=== PATIENT | male | born 2000 | race Caucasian/White ===

== ENCOUNTER 2022-10-23 19:23 | Emergency (ER) | payer OTHER, SELFPAY ==
[2022-10-23 19:24] VITALS: BP 151/92; PULSE 102; RESP 18; TEMP 36.6; O2SAT 98; BMI 21.5
--- NOTE | 2022-10-23 19:29 | EKG12_ITS ---
Test Reason : CP Blood Pressure : / mmHG Vent. Rate : 100 BPM Atrial Rate : 100 BPM P-R Int : 144 ms QRS Dur : 082 ms QT Int : 320 ms P-R-T Axes : 076 076 013 degrees QTc Int : 412 ms Normal sinus rhythm Nonspecific T wave abnormality Abnormal ECG Confirmed by TORRI GOODMAN, SUSU ([id number]), rewrite editor RUTH REA ([id number]) on 10/24/2022 1:11:31 PM Referred By: KELLEN Confirmed By:KETURAH WILD MD
--- NOTE | 2022-10-23 19:33 | RAD_ITS ---
EXAM: XR CHEST, 1 VIEW CLINICAL INDICATION: None provided. chest pain chest pain with shortness of breath all day TECHNIQUE: Frontal view of the chest. COMPARISON: No relevant prior studies available. FINDINGS: LUNGS AND PLEURAL SPACES: Unremarkable. No consolidation or edema. No pneumothorax. No effusion. HEART: Unremarkable. Cardiac silhouette not enlarged. MEDIASTINUM: Central airways and mediastinal contour are unremarkable. BONES/JOINTS: Unremarkable. SOFT TISSUES: Unremarkable. RAD/Chest 1 View (Portable) IMPRESSION: No radiographic evidence of acute cardiopulmonary disease. Electronically Signed: Neptali Espinoza MD at 19:44 EDT ,
[2022-10-23 20:23] LABS: Absolute Neutrophil Count 5.3 X10^3/uL (2.0-7.7); Basophil# 0.04 X10^3/uL; Basophil% 0.5 % (0-1); Eosinophil# 0.05 X10^3/uL; Eosinophils% 0.6 % (0-5); Hematocrit 49.2 % (40-54); Hemoglobin 16.3 g/dL (13.0-16.5); Lymphocyte % 23.5 % (19-41); Mean Corp Hgb Conc 33.1 g/dL (32-36); Mean Corpuscular Hgb 27.7 pg (27.0-32.0); Mean Corpuscular Volume 83.7 fL (80-94); Mean Platelet Vol. 9.5 fl (6.2-12.0); Monocyte# 0.74 X10^3/uL; Monocyte% 9.2 % (0-10); NRBC Flagged by Analyzer 0 % (0-5); Neutrophil % 65.7 % (47-70); Platelet Count 309 K/mm3 (150-450); RBC Distribution Width CV 12.2 % (11.6-14.6); RBC Distribution Width SD 37.3 fl (35.1-43.9); Red Blood Count 5.88 M/mm3 (4.6-6.2); White Blood Count 8.1 K/mm3 (4.4-11.0)
[2022-10-23 20:42] LABS: Anion Gap 9 (5-15); BUN 9 mg/dL (7-18); BUN/Creat Ratio 9.6 RATIO (10-20); Calcium,Total 9.8 mg/dL (8.5-10.1); Chloride 101 mmol/L (98-107); Creatinine, Serum 0.93 mg/dL (0.70-1.30); EST Glomerular Filtration Rate 108 mL/min (>60); Est Glom Filt Rate - Afr Amer 131 mL/min (>60); Estimated Creatinine Clearance 121.03 ml/min; Glucose 126 mg/dL (74-106); Potassium 3.6 mmol/L (3.5-5.1); Sodium Level 138 mmol/L (136-145); Troponin-I HS (w/2H Reflex) 4 pg/mL (3.0-78.0)
--- NOTE | 2022-10-23 23:03 | EDS_ITS ---
HPI History of Present Illness Chief Complaint: Chest Pain Narrative Narrative: 22-year-old male with chest pain. He states he also has some shortness of breath. He has history of ADHD. He states that about 10 AM today he started experiencing chest pain and shortness of breath but felt a little bit like pressure. He states its been constant all day. He believes it started after he took his dexmethylphenidate but he takes this regularly. Patient currently feels like his symptoms have resolved. He has concerned that he might have some anxiety because of finals week. He is also concerned to be a medication side effect as he did take it on empty stomach. He has not had fever, chills. PE Risk Factors: Negative for Recent Travel/Surgery, Recent Immobilization, Prior DVT or PE, Cancer or OCP + Smoking + >/=35 PFSH PFSH Medical History no medical history Home Medications dexmethylphenidate 15 mg capsule,extended release [id number] 15 mg PO DAILY 10/23/22 [History Last Taken Unknown] isotretinoin 40 mg capsule (Accutane) 40 mg PO BID 10/23/22 [History Last Taken Unknown] Allergy/AdvReac Type Severity Reaction Status Date / Time Penicillins [PCN] Allergy Hives Verified 10/23/22 19:26 Surgical History no surgical history Social History Smoking Status: Never smoker EXAM Physical Exam Const Vital Signs: 10/23/22 19:24 10/23/22 21:59 Temperature 97.8 F Temperature Source Temporal Pulse Rate 102 H Respiratory Rate 18 Blood Pressure 151/92 H Blood Pressure Mean 111 Pulse Ox 98 Oxygen Delivery Method Room Air Room Air Positive well nourished General Appearance ED: NAD HEENT Reports moist mucous membranes normocephalic Eyes PERRL and EOMs intact bilaterally Chest Wall inspection of chest normal Resp normal respiratory effort and clear to auscultation bilaterally Auscultation: Negative for rales, rhonchi or wheezes Cardio regular rate, regular rhythm and no murmurs Extremity normal to inspection Neuro oriented x3 and CN's II-XII intact bilaterally Sensorium / Orientation: awake and alert Psych mental status grossly normal Skin no rashes or lesions noted Heart Score History: Slightly/Non-Suspicious ECG: Normal Age: </= 45 years Risk Factors: No Risk Factors Troponin: </= Normal Limit Score: 0 MDM MDM MDM Narrative Medical decision making narrative: 22-year-old male presenting with chest pain and shortness of breath. He is concerned it might be anxiety versus a medication side effect. No cardiac history. No pulmonary history. He states he is healthy other than taking dexmethylphenidate for ADHD. Pharyngeal includes costochondritis, anxiety, ACS, pneumonia. Did consider PE but the patient does not have any recent travel, history of DVT/PE, history of cancer, recently bedridden immobilized. No recent surgery. Patient slightly tachycardic but he is anxious. Is not hypoxic. CBC to assess white blood cell count, hemoglobin, platelets, differential. BMP to assess renal function, electrolytes, glucose. Troponin to assess for cardiac source. EKG and chest x-ray will also be obtained. EKG on my interpretation shows normal sinus rhythm with a ventricular rate of 100 bpm without sign of ischemic change. Chest x-ray my interpretation shows no acute cardiopulmonary process. The radiologist interprets this and agrees. CBC and BMP unremarkable. Troponin is 4. Patient feeling much better at this point. I do not believe he needs a repeat troponin as he has had pain since 10:00 this morning and his troponin is negative. I do not believe he represents a PE either. I do suspect he has some anxiety. We discussed this at length. He states that his primary care is not local but he can make a follow-up with him. Return precautions discussed. Impression: 1. Chest pain?Noncon Lab Data Labs: Laboratory Results - last 24 hr 10/23/22 10/23/22 20:15 20:15 WBC 8.1 RBC 5.88 Hgb 16.3 Hct 49.2 MCV 83.7 MCH 27.7 MCHC 33.1 RDW Std Deviation 37.3 RDW Coeff of Wilfredo 12.2 Plt Count 309 MPV 9.5 Immature Gran % (Auto) 0.500 Neut % (Auto) 65.7 Lymph % (Auto) 23.5 [place] % (Auto) 9.2 Eos % (Auto) 0.6 Baso % (Auto) 0.5 Absolute Neuts (auto) 5.3 Absolute Lymphs (auto) 1.90 Nucleated RBC % 0 Sodium 138 Potassium 3.6 Chloride 101 Carbon Dioxide 28.0 Anion Gap 9 BUN 9 Creatinine 0.93 Estim Creat Clear Calc 121.03 Est GFR (MDRD) Af Amer 131 Est GFR (MDRD) Non-Af 108 BUN/Creatinine Ratio 9.6 L Glucose 126 H Calcium 9.8 Troponin I High Sens 4 Radiography Diagnostic Testing: Clinical Impression(s) from Imaging Studies Chest X-Ray 10/23/22 19:33 IMPRESSION: No radiographic evidence of acute cardiopulmonary disease. Electronically Signed: Neptali Espinoza MD at 19:44 EDT Reading Location ID and State: [facility] / [place] , Service support , Discharge Plan Triage Chief Complaint: Chest Pain ED Provider: Ronal Zarate Dx/Rx/DC Orders Instructions: ED Chest Pain, Uncertain Cause Prescriptions: No Action isotretinoin [Accutane] 40 mg Capsule 40 mg PO BID Rx Instructions: must administer with a meal/food dexmethylphenidate 15 mg Capsule,Er Biphasic 50-50 15 mg PO DAILY Primary Care Provider: Care Physician,No Primary Referrals: Care Physician,No Primary [Primary Care Provider] - Disposition Disposition: Home, Self Care
[2022-10-23 23:22] VITALS: BP 129/60; PULSE 78; RESP 17; O2SAT 96
== END 2022-10-23 23:23 | disposition home or self-care (01) ==
PROVIDERS: Emergency Provider Student in an Organized Health Care Education/Training Program; Visit Provider Student in an Organized Health Care Education/Training Program
DX: R07.9 Chest pain, unspecified (principal)
CPT/HCPCS: 71045; 80048; 84484; 85025; 93005; 99284; A4216